=== PATIENT | female | born 2000 | race American Indian/Alaskan Native ===

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

== ENCOUNTER 2021-11-08 10:05 | Emergency (ER) | payer SELFPAY ==
[2021-11-08 12:23] VITALS: BP 135/83
[2021-11-08] MEDS ORDERED: ACETAMINOPHEN W/CODEINE 300-30 MG TAB PO ONE (14:50)
[2021-11-08] MEDS ORDERED: KETOROLAC 10 MG TAB PO ONE (14:50)
--- NOTE | 2021-11-08 15:55 | Ultrasound Report ---
Pelvic Ultrasound HISTORY: pain after IUD removal. TECHNIQUE: Grayscale and color imaging performed. COMPARISON: None FINDINGS: Uterus measures 8.2 x 4.0 x 5.0 cm with endometrial complex measuring 11 mm. A trace amount of fluid is seen in the endometrial canal near the fundus which is of uncertain clinical significanc e. Both ovaries are normal in size with likely involuting functional cyst on the right measuring 2 cm in maximal dimension and a simple cyst on the left measuring 1.9 cm. No significant pelvic free fluid. IMPRESSION: 1. No clearly acute abnormality identified. 2. Bilateral ovarian cysts as above. Signer Name: Vini Jeronimo MD Signed: 11/08/2021 3:51 PM Workstation Name: [id number]
[2021-11-08 18:25] LABS: Bilirubin,Urine NEG (Negative); Blood,Urine NEG (Negative); Color,Urine Yellow (Yellow); Protein,Urine <15 mg/dL mg/dL (Negative); Urobilinogen,Urine < 2.0 mg/dL (<2.0)
--- NOTE | 2021-11-08 18:41 | Emergency Department Report ---
ED Female HPI - General Chief complaint: Pain General Stated complaint: SENT BY DR EASLEY/LOW BACK PAIN Time Seen by Provider: 11/08/21 14:10 Source: patient Mode of arrival: Ambulatory Limitations: No Limitations - History of Present Illness Initial comments: 21-year-old black female with no past medical history presents to the emergency department for evaluation of lower back and pelvic pain. She was sent over from her doctor's office stating that she had an IUD removed 3 to 4 days ago and since then has developed some vaginal bleeding along with dizziness and severe abdominal pain. She denies fever nausea vomiting dysuria. She states that she had IUD removed secondary to persistent cramping. She states that vaginal bleeding has improved some but the pain has gotten worse. MD Complaint: vaginal bleeding, pelvic pain -: Gradual, days(s) (3-4) Location: LLQ, RLQ Radiation: non-radiating Severity: severe Severity scale (0 -10): 10 Quality: cramping, aching Consistency: constant Worsens with: movement Are you Now?: No - Related Data Sexually active: Yes Home Medications Medication Instructions Recorded Confirmed Last Taken Vit-Fe Fumar-FA [ 1 tab PO QDAY 02/16/19 02/18/19 02/15/19 21:00 Vitamin] 1 Previous Rx's Medication Instructions Recorded Last Taken Type Ibuprofen [Motrin 800 MG tab] 800 mg PO Q8HR PRN #30 tablet 02/18/19 Unknown Rx Lidocain2.5%/Prilocai2.5% [Emla] 5 gm TP ONCE PRN #1 tube 02/18/19 Unknown Rx Naproxen [Naprosyn] 500 mg PO BID PRN #21 tab 11/08/21 Unknown Rx Allergies Allergy/AdvReac Type Severity Reaction Status Date / Time No Known Allergies Allergy Verified 02/16/19 11:28 ED Review of Systems ROS: Stated complaint: SENT BY DR EASLEY/LOW BACK PAIN Other details as noted in HPI Comment: All other systems reviewed and negative Constitutional: denies: chills, diaphoresis, fever, malaise, weakness Eyes: denies: eye pain ENT: denies: ear pain Respiratory: denies: cough, shortness of breath, SOB with exertion, SOB at rest Cardiovascular: denies: chest pain, palpitations, dyspnea on exertion, edema, syncope, paroxysmal nocturnal dyspnea Endocrine: no symptoms reported Gastrointestinal: abdominal pain. denies: nausea, vomiting, diarrhea, constipation, hematemesis, melena, hematochezia Genitourinary: denies: urgency, dysuria, frequency, hematuria, discharge Musculoskeletal: back pain. denies: joint swelling, arthralgia, myalgia Skin: denies: rash, lesions Neurological: denies: headache, weakness, numbness, paresthesias, confusion, abnormal gait Psychiatric: denies: anxiety, depression Hematological/Lymphatic: denies: easy bleeding, easy bruising ED Past Medical Hx - Past Medical History Hx Hypertension: No Hx Heart Attack/AMI: No Hx Diabetes: No Hx Deep Vein Thrombosis: No Hx Liver Disease: No Hx Renal Disease: No Hx Sickle Cell Disease: No Hx Seizures: No Hx Asthma: No Hx COPD: No Hx HIV: No - Surgical History Hx Pacemaker: No Hx Internal Defibrillator: No - Social History Smoking Status: Never Smoker - Medications Home Medications: Home Medications Medication Instructions Recorded Confirmed Last Taken Type Vit-Fe Fumar-FA [ 1 tab PO QDAY 02/16/19 02/18/19 02/15/19 21:00 History Vitamin] 1 Ibuprofen [Motrin 800 MG tab] 800 mg PO Q8HR PRN #30 tablet 02/18/19 Unknown Rx Lidocain2.5%/Prilocai2.5% [Emla] 5 gm TP ONCE PRN #1 tube 02/18/19 Unknown Rx Naproxen [Naprosyn] 500 mg PO BID PRN #21 tab 11/08/21 Unknown Rx ED Physical Exam - General Limitations: No Limitations General appearance: alert, in no apparent distress - Head Head exam: Present: atraumatic, normocephalic - Eye Eye exam: Present: normal appearance. Absent: conjunctival injection - Neck Neck exam: Present: normal inspection. Absent: tenderness - Respiratory Respiratory exam: Present: normal lung sounds bilaterally. Absent: respiratory distress, wheezes, rales, rhonchi, chest wall tenderness - Cardiovascular Cardiovascular Exam: Present: regular rate, normal heart sounds - GI/Abdominal GI/Abdominal exam: Present: soft, tenderness (Bilateral lower quadrant), normal bowel sounds. Absent: distended, guarding, rebound, rigid - Extremities Exam Extremities exam: Present: normal inspection, full ROM - Back Exam Back exam: Present: normal inspection, full ROM, tenderness (Right lower). Abse nt: CVA tenderness (R), CVA tenderness (L), muscle spasm, paraspinal tenderness, vertebral tenderness - Neurological Exam Neurological exam: Present: alert, oriented X3 - Psychiatric Psychiatric exam: Present: normal affect, normal mood - Skin Skin exam: Present: warm, dry, intact, normal color ED Course Vital Signs 11/08/21 11/08/21 11/08/21 12:20 15:11 19:08 Temperature 98.1 F Pulse Rate 62 71 Respiratory 16 12 16 Rate Blood Pressure 135/83 O2 Sat by Pulse 99 100 Oximetry ED Medical Decision Making - Radiology Data Radiology results: report reviewed Pelvic ultrasound complete= no acute abnormalities noted. Bilateral ovarian cyst noted - Medical Decision Making 21-year-old black female with no past medical history presents to the emergency department for evaluation of lower back and pelvic pain. She was sent over from her doctor's office stating that she had an IUD removed 3 to 4 days ago and since then has developed some vaginal bleeding along with dizziness and severe abdominal pain. She denies fever nausea vomiting dysuria. She states that she had IUD removed secondary to persistent cramping. She states that vaginal bleeding has improved some but the pain has gotten worse. Pelvic ultrasound without any acute findings but noted to have bilateral ovarian cysts. UA negative for urinary tract infection. Patient will be treated with course of anti-inflammatories for pain and encouraged to follow-up with [facility] for further evaluation. She was advised to return to the emergency department for worsening symptoms or any other concerning symptoms. Plan of care was reviewed with patient, and she verbalized understanding of and agreement with. Critical care attestation.: If time is entered above; I have spent that time in minutes in the direct care of this critically ill patient, excluding procedure time. ED Disposition Clinical Impression: Abdominal pain Qualifiers: Abdominal location: lower abdomen, unspecified Qualified Code(s): R10.30 - Lower abdominal pain, unspecified Ovarian cyst Qualifiers: Laterality: bilateral Qualified Code(s): N83.201 - Unspecified ovarian cyst, right side Disposition: HOME / SELF CARE / HOMELESS Is pt being admited?: No Does the pt Need Aspirin: No Condition: Stable Instructions: Abdominal Pain, Adult, [id number], Ovarian Cyst, [id number] Additional Instructions: Take medications as prescribed. Follow-up with [facility]. Return to the ER for worsening symptoms. Prescriptions: Naproxen [Naprosyn] 500 mg PO BID PRN #21 tab PRN Reason: Pain , Severe (7-10) Referrals: PRIMARY CARE, [Primary Care Provider] - 3-5 Days CHARIS GUERRA MD [Staff Physician] - 3-5 Days Forms: Work/School Release Form(ED) Time of Disposition: 18:40
== END 2021-11-08 19:00 | disposition home or self-care (01) ==
LOC: ED 10:05
DX: N83.201 Unspecified ovarian cyst, right side (principal); N83.202 Unspecified ovarian cyst, left side; Z79.899 Other long term (current) drug therapy
CPT/HCPCS: 76830; 76856; 81001; 99284